=== PATIENT | female | born 1975 | race Caucasian/White ===

== ENCOUNTER 2017-12-25 19:44 | Inpatient (IN) | payer OTHER ==
[~2017-12-25] VITALS: Ht 157.5 cm; Wt 100.2 kg
[2017-12-25] MEDS ORDERED: SODIUM CHLORIDE FLUSH 10ML SYR IVF ONE (21:30)
[2017-12-25] MEDS ORDERED: MORPHINE SULFATE 4 MG/ML, 1ML IVPush PRN (21:30)
[2017-12-25] MEDS ORDERED: SODIUM CHLORIDE 0.9% 1,000ML IVBOLUS ONE (21:30)
[2017-12-25] MEDS ORDERED: ONDANSETRON 2MG/ML, 2ML IVPush ONE (21:30)
[2017-12-25] MEDS ORDERED: MORPHINE SULFATE 4 MG/ML, 1ML ONE (21:59)
[2017-12-25] MEDS ORDERED: ONDANSETRON 2MG/ML, 2ML ONE (21:59)
[2017-12-25 22:06] LABS: BASOPHILS # (AUTO) 0.04 x10^3/uL (0-0.1); BASOPHILS % (AUTO) 0 % (0-1); EOSINOPHILS % (AUTO) 1 % (1-7); LYMPHOCYTES # (AUTO) 1.09 x10^3/uL (1-3.4); LYMPHOCYTES % (AUTO) 11 % (22-44); MD NO; MEAN CORPUSCULAR HEMOGLOBIN 24.4 pg (27.0-34.8); MEAN CORPUSCULAR HGB CONC 33.1 g/dL (32.4-35.8); MEAN CORPUSCULAR VOLUME 73.8 fL (80-100); MEAN PLATELET VOLUME 7.8 fL (7.4-10.4); MONOCYTES # (AUTO) 0.71 x10^3/uL (0.2-0.8); MONOCYTES % (AUTO) 7 % (2-9); NEUTROPHILS # (AUTO) 8.33 x10^3/uL (1.8-6.8); NEUTROPHILS % (AUTO) 81 % (42-75); PLATELET COUNT 260 x10^3/uL (130-400); RED BLOOD COUNT 4.96 x10^6/uL (3.82-5.3); RED CELL DISTRIBUTION WIDTH 16.5 % (9.6-15.2)
[2017-12-25 22:12] LABS: ALBUMIN 3.5 g/dL (3.4-5.0); ANION GAP 7 mmol/L (5-15); CALCIUM 9.3 mg/dL (8.5-10.1); CHLORIDE 104 mmol/L (98-107); CREATININE 0.97 mg/dL (0.55-1.02)
[2017-12-25 22:22] LABS: FREE T4 (FREE THYROXINE) 1.45 ng/dL (0.76-1.46)
[2017-12-25] MEDS ORDERED: OMNIPAQUE 350 MG/ML, 75ML BOTTLE ONE (22:46)
[2017-12-25] MEDS ORDERED: HYDROmorphone 2 MG/ML, 1ML ONE (23:50)
[2017-12-26] MEDS ORDERED: AMPICILLIN/SULBACTAM 3 GM in SODIUM CHLORIDE 0.9% 100 ML IVPB ONE
[2017-12-26] MEDS ORDERED: HYDROmorphone 1 MG/ML, 1ML IVPush PRN
[2017-12-26 02:14] VITALS: BP 92/65
[2017-12-26] MEDS ORDERED: NS + 20MEQ KCL 1,000 ML IV SCH (05:06)
[2017-12-26] MEDS ORDERED: ACETAMINOPHEN 325 MG TABLET PO PRN ×2 (05:30→18:00)
[2017-12-26] MEDS ORDERED: ONDANSETRON 2MG/ML, 2ML IVPush PRN ×2 (05:30→18:00)
[2017-12-26] MEDS ORDERED: DOCUSATE 100 MG CAPSULE PO PRN (05:30)
[2017-12-26] MEDS ORDERED: POLYETHYLENE GLYCOL 17 GM PACKET PO PRN (05:30)
[2017-12-26] MEDS ORDERED: morphine SULFATE 10 MG/ML, 1ML IVPush PRN (05:30)
[2017-12-26] MEDS: NICOTINE 14MG/24 HR PATCH.TD24 TD SCH (05:30)
[2017-12-26] MEDS: AMPICILLIN/SULBACTAM 3 GM in SODIUM CHLORIDE 0.9% 100 ML IV SCH ×4 (05:52→23:07)
[2017-12-26] MEDS: ENOXAPARIN 40 MG/0.4 ML SQ SCH (05:52)
[2017-12-26 07:13] VITALS: BP 114/73
[2017-12-26] MEDS: HYDROcodone/APAP 5/325 TABLET PO PRN ×3 (07:52→17:46)
[2017-12-26 11:29] VITALS: BP 136/63
[2017-12-26 13:33] VITALS: BP 101/67
[2017-12-26 13:42] LABS: INTERNATIONAL NORMALIZED RATIO 0.99 (0.93-1.1); PROTHROMBIN TIME 10.2 Seconds (9.6-11.5)
[2017-12-26] MEDS ORDERED: PROMETHAZINE 12.5 MG SUPP PR PRN (18:00)
[2017-12-26] MEDS ORDERED: hydrALAzine 20 MG/ML, 1ML IV PRN (18:00)
[2017-12-26] MEDS ORDERED: OXYcodone 5 MG/5 ML ORAL.SOL UDC PO PRN (18:00)
[2017-12-26] MEDS ORDERED: HYDROmorphone 1 MG/ML, 1ML IV PRN (18:00)
[2017-12-26] MEDS ORDERED: MEPERIDINE/PF 25MG/0.5ML IVPush PRN (18:00)
[2017-12-26] MEDS ORDERED: LABETALOL 5MG/ML, 20ML IV PRN (18:00)
[2017-12-26 18:06] LABS: HCG UR SG 1.041 (1.003-1.030)
[2017-12-26] MEDS ORDERED: NEO/BACI/POLY/HC OINT 15GM ONE (18:24)
[2017-12-26] MEDS ORDERED: EPINEPHRINE 1 MG/ML, 1ML ONE (18:24)
[2017-12-26] MEDS ORDERED: MIDAZOLAM 1 MG/ML, 2ML ONE (20:32)
[2017-12-26] MEDS ORDERED: FENTANYL PF 250 MCG/5ML ONE (20:33)
[2017-12-26] MEDS ORDERED: SUCCINYLCHOLINE 20 MG/ML, 10ML ONE (20:52)
[2017-12-26] MEDS ORDERED: METOCLOPRAMIDE 5 MG/ML, 2ML ONE (20:52)
[2017-12-26] MEDS ORDERED: PROPOFOL 10 MG/ML, 20ML ONE (20:52)
[2017-12-26] MEDS ORDERED: ONDANSETRON 2MG/ML, 2ML ONE (20:54)
[2017-12-26] MEDS ORDERED: LIDOCAINE 1%-EPI 1:100K, 20ML INFIL ONE (20:54)
[2017-12-26] MEDS ORDERED: FENTANYL PF 100 MCG/2ML ONE (21:46)
[2017-12-26] MEDS ORDERED: OXYcodone 5 MG/5 ML ORAL.SOL UDC ONE (21:47)
[2017-12-26] MEDS ORDERED: ACETAMINOPHEN 650 MG/20.3 ML UDC ONE (21:47)
[2017-12-26] MEDS: FENTANYL PF 100 MCG/2ML IV PRN ×2 (21:52→22:03)
[2017-12-26 22:29] VITALS: BP 135/77
[2017-12-26] MEDS: FERROUS SULFATE 325 MG TABLET PO SCH (23:07)
[2017-12-27 00:28] VITALS: BP 146/83
[2017-12-27] MEDS: HYDROcodone/APAP 5/325 TABLET PO PRN ×4 (03:30→19:51)
[2017-12-27 04:15] VITALS: BP 127/83
[2017-12-27] MEDS: ENOXAPARIN 40 MG/0.4 ML SQ SCH (05:21)
[2017-12-27] MEDS: AMPICILLIN/SULBACTAM 3 GM in SODIUM CHLORIDE 0.9% 100 ML IV SCH ×4 (05:21→23:30)
[2017-12-27] MEDS: NICOTINE 14MG/24 HR PATCH.TD24 TD SCH (05:25)
[2017-12-27 05:27] LABS: CHLORIDE 106 mmol/L (98-107)
[2017-12-27 05:32] LABS: BASOPHILS % (AUTO) 0 % (0-1); EOSINOPHILS # (AUTO) 0.01 x10^3/uL (0-0.4); EOSINOPHILS % (AUTO) 0 % (1-7); LYMPHOCYTES % (AUTO) 7 % (22-44); MD NO; MEAN CORPUSCULAR HEMOGLOBIN 24.2 pg (27.0-34.8); MEAN CORPUSCULAR HGB CONC 32.5 g/dL (32.4-35.8); MEAN CORPUSCULAR VOLUME 74.3 fL (80-100); MEAN PLATELET VOLUME 8.1 fL (7.4-10.4); MONOCYTES # (AUTO) 0.23 x10^3/uL (0.2-0.8); MONOCYTES % (AUTO) 3 % (2-9); NEUTROPHILS # (AUTO) 6.83 x10^3/uL (1.8-6.8); NEUTROPHILS % (AUTO) 90 % (42-75); PLATELET COUNT 242 x10^3/uL (130-400); RED BLOOD COUNT 4.51 x10^6/uL (3.82-5.3); RED CELL DISTRIBUTION WIDTH 16.3 % (9.6-15.2)
[2017-12-27 05:33] LABS: ANION GAP 5 mmol/L (5-15); CALCIUM 8.5 mg/dL (8.5-10.1); CREATININE 0.82 mg/dL (0.55-1.02)
[2017-12-27] MEDS: FERROUS SULFATE 325 MG TABLET PO SCH ×2 (07:58→19:51)
[2017-12-27 08:00] VITALS: BP 144/77
[2017-12-27 13:35] VITALS: BP 110/72
[2017-12-27 19:55] VITALS: BP 118/74
[2017-12-28 01:36] VITALS: BP 101/63
[2017-12-28] MEDS: NICOTINE 14MG/24 HR PATCH.TD24 TD SCH (05:25)
[2017-12-28] MEDS: AMPICILLIN/SULBACTAM 3 GM in SODIUM CHLORIDE 0.9% 100 ML IV SCH ×2 (05:26→11:28)
[2017-12-28] MEDS: ENOXAPARIN 40 MG/0.4 ML SQ SCH (05:26)
[2017-12-28 06:33] VITALS: BP 114/66
[2017-12-28] MEDS: FERROUS SULFATE 325 MG TABLET PO SCH ×2 (09:40→21:17)
[2017-12-28] MEDS: HYDROcodone/APAP 5/325 TABLET PO PRN ×2 (09:47→21:24)
[2017-12-28] MEDS ORDERED: AMOX1TAB12 PO (11:38)
[2017-12-28] MEDS ORDERED: FLU VACC QS2017-18 (36MOS+) UP/PF 0.5 ML IM-VACC ONE (12:30)
[2017-12-28 13:20] VITALS: BP 108/69
[2017-12-28] MEDS: AMOXICILLIN/CLAV 875-125MG TABLET PO SCH (15:43)
[2017-12-28 19:45] VITALS: BP 131/85
[2017-12-29 01:59] VITALS: BP 112/69
[2017-12-29] MEDS: NICOTINE 14MG/24 HR PATCH.TD24 TD SCH (06:00)
[2017-12-29] MEDS: AMOXICILLIN/CLAV 875-125MG TABLET PO SCH (06:17)
[2017-12-29] MEDS: ENOXAPARIN 40 MG/0.4 ML SQ SCH (06:17)
[2017-12-29 06:50] VITALS: BP 112/77
[2017-12-29] MEDS: FERROUS SULFATE 325 MG TABLET PO SCH (09:27)
== END 2017-12-29 13:35 | disposition home or self-care (01) | DRG 137 ==
LOC: ED 12-26 01:28 → 4NOR 12-26 01:36
PROVIDERS: ADMIT Family Medicine; ATTEND Family Medicine
PROC: 0CDWXZ1 Extraction of Upper Tooth, Multiple, External Approach (ICD-10-PCS; 2017-12-26)
PROC: 0W930ZZ Drainage of Oral Cavity and Throat, Open Approach (ICD-10-PCS; principal; 2017-12-26 20:00)
DX: K04.7 Periapical abscess without sinus (principal); K12.2 Cellulitis and abscess of mouth; D50.9 Iron deficiency anemia, unspecified; F17.200 Nicotine dependence, unspecified, uncomplicated; F32.9 Major depressive disorder, single episode, unspecified; D72.829 Elevated white blood cell count, unspecified; J98.11 Atelectasis; J32.0 Chronic maxillary sinusitis; J32.2 Chronic ethmoidal sinusitis; K02.9 Dental caries, unspecified; K05.30 Chronic periodontitis, unspecified; R09.02 Hypoxemia; Z88.2 Allergy status to sulfonamides
CPT/HCPCS: 36415; 70487; 80048; 81025; 82040; 82728; 83540; 83550; 84439; 84443; 84466; 85025; 85610; 90686; 99285; J0171; J0295; J1170; J1650; J2250; J2405; J2704; J3010; J3480; J3490; Q9967; J0330; J2765; J7030